=== PATIENT | female | born 1935 | race African-American/Black ===

== ENCOUNTER 2017-05-12 12:51 | Emergency (ER) | payer MEDICAID, MEDICARE ==
[~2017-05-12] VITALS: Ht 162.6 cm; Wt 65.0 kg
[2017-05-12] MEDS ORDERED: SIMV10TA6 PO (13:01)
[2017-05-12] MEDS ORDERED: INSU100I24 SQ (13:01)
[2017-05-12] MEDS ORDERED: ASPI-1159 PO (13:01)
[2017-05-12] MEDS ORDERED: BENA20TA3 PO (13:01)
[2017-05-12 17:30] VITALS: BP 112/72
== END 2017-05-12 18:00 | disposition home or self-care (01) ==
LOC: ER 13:34
DX: J30.9 Allergic rhinitis, unspecified (principal); E11.9 Type 2 diabetes mellitus without complications; E78.00 Pure hypercholesterolemia, unspecified; I10 Essential (primary) hypertension; Z79.4 Long term (current) use of insulin; Z79.82 Long term (current) use of aspirin
CPT/HCPCS: 99283